=== PATIENT | male | born 1965 | race Caucasian/White ===

== ENCOUNTER → 2016-12-06 | Outpatient (CLI) | payer BC ==
[2016-12-06 10:19] LABS: BUN/CREATININE RATIO 12 (0-10)
== END ==
LOC: LAB 09:22
PROVIDERS: Internal Medicine Nephrology
DX: R80.9 Proteinuria, unspecified (principal)
CPT/HCPCS: 36415; 80048; 81001; 82043; 82570

== ENCOUNTER → 2017-02-13 | Outpatient (CLI) | payer BC ==
[2017-02-13 09:39] LABS: BUN/CREATININE RATIO 18 (0-10)
== END ==
LOC: LAB 08:18
PROVIDERS: Emergency Medicine
DX: K59.09 Other constipation (principal); I10 Essential (primary) hypertension; E11.69 Type 2 diabetes mellitus with other specified complication; E78.2 Mixed hyperlipidemia; R80.8 Other proteinuria; R53.83 Other fatigue; R31.29 Other microscopic hematuria
CPT/HCPCS: 36415; 74000; 80053; 80061; 81001; 82043; 82570; 83036; 83704; 84443

== ENCOUNTER → 2020-09-15 | Outpatient (CLI) | payer OTHER ==
[~2020-09-15] MED LIST: ASPIRIN325 MG PO; BACTRIM DS TAB1 EACH PO; BROMFED DM COU473 ML PO; PROVENTIL HFA6.7 GM INH; VIBRAMYCIN100 MG PO; Voltaren Gel 1% TOP
[2020-09-15 09:12] LABS: BUN/CREATININE RATIO 14 (0-10)
== END ==
LOC: LAB 08:16
PROVIDERS: Emergency Medicine
DX: E11.65 Type 2 diabetes mellitus with hyperglycemia (principal); E78.2 Mixed hyperlipidemia; I10 Essential (primary) hypertension; R53.83 Other fatigue
CPT/HCPCS: 36415; 80053; 83036

== ENCOUNTER 2020-11-04 09:12 | Emergency (ER) | payer OTHER ==
[2020-11-04 10:36] LABS: HEMOGLOBIN 13.8 gm/dl (14.0-17.5); RED BLOOD COUNT 4.59 M/UL (4.20-5.50); WHITE BLOOD COUNT 9.5 K/UL (4.5-11.0)
[2020-11-04 11:55] LABS: BUN/CREATININE RATIO 21 (0-10)
[2020-11-04] MEDS ORDERED: VIBRAMYCIN100 MG PO (13:17)
[2020-11-04] MEDS ORDERED: BROMFED DM COU473 ML PO (13:17)
[2020-11-04] MEDS ORDERED: PROVENTIL HFA6.7 GM INH (13:17)
== END 2020-11-04 13:15 | disposition home or self-care (01) ==
LOC: ER1 09:12
PROVIDERS: Physician Assistant
DX: J12.9 Viral pneumonia, unspecified (principal); E11.9 Type 2 diabetes mellitus without complications; I10 Essential (primary) hypertension; Z90.89 Acquired absence of other organs; Z86.16 Personal history of COVID-19
CPT/HCPCS: 71045; 80053; 85025; 85379; 93005; 94664; 94760; 99285; Q9967

== ENCOUNTER 2020-11-19 16:33 | Emergency (ER) | payer OTHER ==
[~2020-11-19 16:33] MED LIST changes: -ASPIRIN325 MG PO; -BACTRIM DS TAB1 EACH PO; -Voltaren Gel 1% TOP
[2020-11-19] MEDS ORDERED: BACTRIM DS TAB1 EACH PO (18:11)
[2020-11-19] MEDS ORDERED: Voltaren Gel 1% TOP (18:11)
[2020-11-19] MEDS ORDERED: ASPIRIN325 MG PO (18:11)
== END 2020-11-19 18:38 | disposition admitted as inpatient to this hospital (09) ==
LOC: ER1 16:33
DX: M79.604 Pain in right leg (principal); I10 Essential (primary) hypertension; E11.9 Type 2 diabetes mellitus without complications; J45.909 Unspecified asthma, uncomplicated; Z90.49 Acquired absence of other specified parts of digestive tract; Z86.16 Personal history of COVID-19; Z88.8 Allergy status to other drugs, medicaments and biological substances
CPT/HCPCS: 36415; 80053; 85025; 85379; 93971; 99283

== ENCOUNTER → 2020-11-19 | Outpatient (CLI) | payer OTHER ==
[2020-11-19 12:14] LABS: RED BLOOD COUNT 4.96 M/UL (4.20-5.50)
[2020-11-19 12:21] LABS: HEMOGLOBIN 14.9 gm/dl (14.0-17.5); WHITE BLOOD COUNT 15.5 K/UL (4.5-11.0)
[2020-11-19 12:39] LABS: BUN/CREATININE RATIO 23 (0-10)
== END ==
LOC: LAB 11:37
PROVIDERS: Nurse Practitioner
DX: J12.82 Pneumonia due to coronavirus disease 2019 (principal); R06.02 Shortness of breath; M79.604 Pain in right leg; I83.811 Varicose veins of right lower extremity with pain
CPT/HCPCS: 36415; 80053; 85025; 85379

== ENCOUNTER → 2020-12-13 | Outpatient (CLI) | payer OTHER ==
[~2020-12-13] MED LIST changes: +ASPIRIN325 MG PO; +BACTRIM DS TAB1 EACH PO; +Voltaren Gel 1% TOP
[2020-12-13 07:44] LABS: BUN/CREATININE RATIO 16 (0-10)
[2020-12-14 18:12] LABS: CHOLESTEROL, TOTAL 219 mg/dL (100-199); HDL SIZE 8.5 nm (>=9.2); HDL-C 39 mg/dL (>39); HDL-P (TOTAL) 24.4 umol/L (>=30.5); LARGE HDL-P 2.6 umol/L (>=4.8); LARGE VLDL-P 6.4 nmol/L (<=2.7); LDL SIZE 20.4 nm (>20.5); LDL SIZE 20.4 nm (>=20.8); LDL-C 152 mg/dL (0-99); LDL-P 1679 nmol/L (<1000); LP-IR SCORE 75 (<=45); SMALL LDL-P 914 nmol/L (<=527); TRIGLYCERIDES 155 mg/dL (0-149); VLDL SIZE 47.7 nm (<=46.6)
== END ==
LOC: LAB 06:46
PROVIDERS: Emergency Medicine
DX: E11.65 Type 2 diabetes mellitus with hyperglycemia (principal); E11.69 Type 2 diabetes mellitus with other specified complication; E78.2 Mixed hyperlipidemia; F33.1 Major depressive disorder, recurrent, moderate; G47.09 Other insomnia; I10 Essential (primary) hypertension; I71.2 Thoracic aortic aneurysm, without rupture; J01.01 Acute recurrent maxillary sinusitis; J20.8 Acute bronchitis due to other specified organisms; J45.21 Mild intermittent asthma with (acute) exacerbation; K52.89 Other specified noninfective gastroenteritis and colitis; K59.09 Other constipation; K61.2 Anorectal abscess; M13.811 Other specified arthritis, right shoulder; M13.861 Other specified arthritis, right knee; M25.511 Pain in right shoulder; M47.22 Other spondylosis with radiculopathy, cervical region; M51.36 Other intervertebral disc degeneration, lumbar region; M51.16 Intervertebral disc disorders with radiculopathy, lumbar region; R05 Cough; R06.02 Shortness of breath; R07.89 Other chest pain; R35.1 Nocturia; R74.02 Elevation of levels of lactic acid dehydrogenase [LDH]; R80.8 Other proteinuria; S46.091D Other injury of muscle(s) and tendon(s) of the rotator cuff of right shoulder, subsequent encounter; Z68.33 Body mass index [BMI] 33.0-33.9, adult; X58.XXXD Exposure to other specified factors, subsequent encounter
CPT/HCPCS: 36415; 80053; 80061; 83704

== ENCOUNTER → 2020-12-20 | Outpatient (CLI) | payer OTHER | LOC: EXRD 15:07 | DX: I82.811 Embolism and thrombosis of superficial veins of right lower extremity (principal) | CPT/HCPCS: 93971 ==

== ENCOUNTER → 2021-01-18 | Outpatient (CLI) | payer OTHER | LOC: KOH-I 09:09 | DX: M75.101 Unspecified rotator cuff tear or rupture of right shoulder, not specified as traumatic (principal) | CPT/HCPCS: 73221 ==

== ENCOUNTER → 2021-05-01 | Outpatient (CLI) | payer OTHER ==
[2021-05-01 07:43] LABS: BUN/CREATININE RATIO 16 (0-10)
[2021-05-03 15:10] LABS: CHOLESTEROL, TOTAL 193 mg/dL (100-199); HDL SIZE 8.4 nm (>=9.2); HDL-C 38 mg/dL (>39); HDL-P (TOTAL) 29.9 umol/L (>=30.5); LARGE HDL-P <1.3 umol/L (>=4.8); LARGE VLDL-P 6.4 nmol/L (<=2.7); LDL SIZE 20.1 nm (>20.5); LDL SIZE 20.1 nm (>=20.8); LDL-C 121 mg/dL (0-99); LDL-P 1548 nmol/L (<1000); LP-IR SCORE 87 (<=45); SMALL LDL-P 1005 nmol/L (<=527); TRIGLYCERIDES 193 mg/dL (0-149); VLDL SIZE 55.8 nm (<=46.6)
== END ==
LOC: LAB 06:57
PROVIDERS: Emergency Medicine
DX: E11.65 Type 2 diabetes mellitus with hyperglycemia (principal); E78.2 Mixed hyperlipidemia; I10 Essential (primary) hypertension
CPT/HCPCS: 36415; 80053; 80061; 83036; 83704

== ENCOUNTER → 2021-05-01 | Outpatient (CLI) | payer OTHER | LOC: EXRD 07:37 | DX: M79.621 Pain in right upper arm (principal) | CPT/HCPCS: 93971 ==

== ENCOUNTER → 2021-07-09 | Outpatient (CLI) | payer OTHER | LOC: KOH-I 14:25 | DX: I77.810 Thoracic aortic ectasia (principal); R93.1 Abnormal findings on diagnostic imaging of heart and coronary circulation | CPT/HCPCS: 71250 ==

== ENCOUNTER → 2021-10-19 | Outpatient (CLI) | payer OTHER ==
[2021-10-19 09:00] LABS: BUN/CREATININE RATIO 15 (0-10)
== END ==
LOC: LAB 08:14
PROVIDERS: Nurse Practitioner
DX: J20.9 Acute bronchitis, unspecified (principal); J45.901 Unspecified asthma with (acute) exacerbation; E11.65 Type 2 diabetes mellitus with hyperglycemia; E78.2 Mixed hyperlipidemia; I10 Essential (primary) hypertension
CPT/HCPCS: 36415; 71046; 80053; 80061; 83036

== ENCOUNTER → 2021-12-18 | Outpatient (CLI) | payer OTHER | LOC: KOH-I 15:28 | DX: I71.2 Thoracic aortic aneurysm, without rupture (principal) | CPT/HCPCS: 71250 ==